=== PATIENT | female | born 1995 | race Caucasian/White ===

== ENCOUNTER 2025-03-24 20:06 | Emergency (ER) | payer OTHER, SELFPAY ==
[2025-03-24 20:09] VITALS: BP 150/89
--- NOTE | 2025-03-24 23:20 | ED.GENMED ---
History of Present Illness
General
Chief Complaint: Dental Problem
Source: patient
Exam Limitations: none
Time Seen by Provider: 03/24/25 23:20
Nursing documentation reviewed up to this point in time: agreed with
History of Present Illness
History of Present Illness:
Note:
CHIEF COMPLAINT(S)
Sore throat and oral ulceration following dental procedure.
HISTORY OF PRESENT ILLNESS
The patient is a 29-year-old female presenting with symptoms following recent dental work. Patient had cavities filled one week ago. The patient reports persistent discomfort in the right upper quadrant of her mouth with associated tightness
described as muscle pain following cavity fillings done by Dr. Jacob Villalobos. She reports swelling and the development of oral sores, including one on her tongue. The patient noticed a sore throat with white spots as observed by a family member,
prompting her to suspect an infection. She has not felt well over the past few days but denies fever but has been using [id number]-[id number] acetaminophen and ibuprofen for discomfort which has helped. The patient also reports feeling a lump on her
right anterior neck similar to the sensation during a cold. There is no difficulty swallowing or ear pain reported, no nausea, vomiting, headaches, trouble speaking, drooling, asymmetric swelling. Additionally, she mentions a history of developing
canker sores which typically resolve without intervention. The patient has plans to see another dentist at [facility] following dissatisfaction with the care received. She has followed Dr. Og in the past for recurrent strep infections.
ALLERGIES
The patient has an known allergy to codeine.
PAST SURGICAL HISTORY
The patient has had wisdom teeth extraction in the past.
MEDICATIONS
The patient has been using nqzq-eaz-bryfobo acetaminophen as needed for pain.
PHYSICAL EXAM
General: Patient is well appearing and in no acute distress; non-toxic
Skin: Warm and dry, no rashes or lesions
Head: Normocephalic, atraumatic
Eyes: Sclera non-icteric. EOMs intact.
Mouth: 1 cm ulcer noted with surrounding erythema on gum line near right upper molars, no purulent drainage
Throat: Uvula midline, mild pharyngeal erythema, small white spot noted to right tonsil (ddx tonsil stone vs exudate)
Neck: Tender right anterior lymph node
Cardiac: Regular rate and rhythm, no murmurs
Pulm: Normal respiratory effort, no wheezes, rales, or rhonchi
Neuro: CN II-XII intact, no focal neurologic deficits.
Psychiatric: Appropriate mood and affect.
- Nursing notes reviewed and vital signs reviewed.
PROBLEM LIST
Acute Problems:
- Sore throat with white spots
- Oral ulceration post dental work
PLAN
- Administer a strep test, COVID-19 test, and influenza test to rule out infections.
- Consider high-dose ibuprofen for oral inflammation.
- Evaluate with ENT for further assessment of the oral ulcer.
- Discuss possibility of oral antibiotics, pending test results.
- Recommend numbing jelly for symptomatic relief of oral sores.
DIFFERENTIAL DIAGNOSIS
The Differential Diagnosis includes, in no particular order and is not limited to:
- Streptococcal pharyngitis
- Viral pharyngitis
- Oral candidiasis
- Herpes simplex virus infection
- Aphthous ulcers
- Post-dental procedure inflammatory response
- Tonsillitis
- Peritonsillar abscess
- Infectious mononucleosis
- Laryngitis
DISPOSITION/MDM
29-year-old female presents emergency department today with concerns of persistent pain following having fillings done with her dentist for cavities as well as an ulcer in her right upper mouth. She also complains of sore throat starting a few days
ago. She has a hx of recurrent strep infections follows with Dr. Og. On physical exam, she is well appearing, in no acute distress, she has one ulcer in her right upper gingival area not consistent with aphthous ulcer, no vesicles consistent
with viral infection. Question possible traumatic ulceration vs laceration from trauma from procedure. She also has pharyngeal erythema and a tender anterior lymph node however her uvula is midline. Suspect viral pharyngitis. Her rapid strep is
negative. Considering red painful ulcer vs laceration and recent dental instrumentation, will initiate Augmentin to cover for developing infection. Stressed importance of following up with dentist. Patient stable for discharge.
Past History
Social History
Tobacco: Non-smoker
Alcohol: None
Drug: None
Review of Systems
Review of Systems
All Other Systems: ROS reviewed and negative except as documented in HPI and ROS
Phy Exam
Physical Exam
Physical Exam:
See HPI
Course
Orders/Labs/Results
Orders:
Orders
03/24/25 23:41
Ibuprofen [Motrin] 600 mg PO NOW STA
03/24/25 23:48
COVID-19 Antigen Urgent
Source: Nasal Swab
Influenza A+B Rapid Molecular Urgent
MARY KATE Source: Nasal Swab
Specimen Description:
Rapid Strep Group A Urgent
MARY KATE Source: Throat/Pharynx
Specimen Description:
Date Specimen was Collected: 03/24/25
Time Specimen was Collected: 23:44
03/24/25 23:53
Benzocaine Oral Gel [Orajel 10% Gel] See Dose Instructions TOPICAL NOW STA
03/25/25 01:04
Amoxicillin 875 mg/Clav 125 mg [Augmentin 875 mg/125 mg] 1 tablet PO NOW STA
Vital Signs
Initial and Last Documented VS:
Initial Vital Signs
Temp Pulse Resp BP Pulse Ox
98.4 F 86 16 150/89 98
03/24/25 20:09 03/24/25 20:09 03/24/25 20:03/24/25 20:03/24/25 20:09
Last Documented Vital Signs
Temp Pulse Resp BP Pulse Ox
98.4 F 86 16 150/89 98
03/24/25 20:09 03/24/25 20:09 03/24/25 20:09 03/24/25 20:09 03/24/25 20:09
MDM/Problems Addressed
Differential Diagnosis Includes:
See HPI
MDM/Problems Addressed:
See HPI
Chronic conditions affecting care:
See HPI
*Pulse Oximetry
Patient hypoxic: no
*Critical Care Note
Total Time (30-74mins, 75-104mins- exclusive of procedures): Not Applicable
Data Reviewed
Review of Other/Old Records Reveals: Records (Reviewed operative report from 06/27 patient seen for acute appendicitis)
Source: patient and records
ED Attending Note
-
Portions of this chart may have been created with voice recognition software.� Occasional wrong word or��sound alike� substitutions may have occurred due to the inherent limitations of voice recognition software.
Discharge Plan
Departure
Patient Disposition: Home (Routine Discharge)
Date of Disposition: 03/25/25
Time of Disposition: 01:08
Patient with high blood pressure during this ER visit?: Yes
Condition: Good
Discharge Problem:
Oral ulceration, Pain due to dental caries
Instructions: Dental pain - ED discharge instructions, BLOOD PRESSURE
Prescriptions:
New
amoxicillin-pot clavulanate 875-125 mg tablet
1 tab PO BID Qty: 7 0RF
No Action
methylphenidate HCl 20 MG tablet
40 mg PO DAILY
Patient Comments:
Per mother pt takes this medication after school. Needs chewable tablets.
methylphenidate HCl [Ritalin LA] 40 MG capsule,ER biphasic 50-50
40 mg PO DAILY
Patient Comments:
pt reports she takes this med in the am
Referrals:
Joseph Dyer PA-C [Family Provider, Family Practice]
Activity Restrictions/Additional Instructions:
You have been given a paper prescription for Augmentin. Please take 1 tablet twice daily for 7 days. The prescription is available in your discharge packet.
Please follow-up with your dentist. Please call for sooner appointment.
PLEASE RETURN TO THE EMERGENCY DEPARTMENT SHOULD YOU DEVELOP PURULENT DRAINAGE FROM YOUR ULCER, INCREASING PAIN, SURROUNDING REDNESS, FEVERS OR CHILLS, INABILITY TO SWALLOW, HOARSENESS TO YOUR VOICE, SWELLING AROUND YOUR JAW, OR ANY OTHER SIGNS OR
SYMPTOMS WORRISOME TO YOU.
Interventions
Interventions:
*Risk Screen - Suicide Last Done: 03/24/25 20:09
*General Assessment Last Done: 03/24/25 20:09
*Neglect/Abuse Screening Last Done: 03/24/25 20:34
*ED- Fall Risk Assessment Last Done: 03/24/25 20:09
*ED COVID-19 Vaccine History Last Done: 03/24/25 20:09
*Nursing Disposition Last Done: 03/25/25 01:27
ED- Neurological Assessment Last Done: 03/24/25 20:34
ED-Skin Assessment Last Done: 03/24/25 20:34
Discharge Date and Time
Discharge Date/Time: 03/25/25 01:27
Print Language: CONGOLESE
[2025-03-24] MEDS: MOTRIN 600 MG PO (23:55)
[2025-03-25] MEDS: ORAJEL 10% GEL 1 APPLIC TOPICAL (00:04)
[2025-03-25 00:19] LABS: COVID-19 Antigen Negative (Negative)
[2025-03-25] MEDS: AUGMENTIN 875 MG/125 MG 1 TABLET PO (01:18)
== END 2025-03-25 01:27 | disposition home or self-care (01) ==
LOC: EMR 20:06
PROVIDERS: Physician Assistant; EMERGENCY PHYSICIAN Emergency Medicine; FAMILY PHYSICIAN Physician Assistant Medical
DX: K02.9 Dental caries, unspecified (principal); K12.1 Other forms of stomatitis; R03.0 Elevated blood-pressure reading, without diagnosis of hypertension; Z11.52 Encounter for screening for COVID-19
CPT/HCPCS: 99283; 87070; 87502; 87811; 87880